=== PATIENT | female | born 1960 | race Caucasian/White ===

== ENCOUNTER 2023-01-12 08:55 | Outpatient (CLI) | payer OTHER ==
--- NOTE | 2023-01-12 12:53 | SLEEP CARE CONSULTATION ---
Information from patient questionnaire entered by Omer Pelaez. I have reviewed and concur with the information entered by Omer Pelaez. This document represents the service I personally performed and the decisions made by me, Amanda Jordan ARNP. History of Present Illness Service Date and Time: 01/12/2023 0855 Reason for Visit: New patient Accompanied by: Spouse Chief Complaint: reports: Unrefreshed sleep, Snoring, Observed pauses in breathing, Fatigue Date of Onset: 5-6YRS Usual bedtime: 930-1030PM Time it takes to fall asleep: 20MINS-2HRS, brain does not shut off Snores at night: Yes Observed to quit breathing while asleep: Yes Sleeps alone due to snoring: No Number of times waking at night: 2-3 Reasons for waking at night: reports: Gasping for air, Bathroom, Other (UNKNOWN TOO HOT TPP COLD). denies: Choking, Snoring Toss, Turn, or Twitch while sleeping: Yes Recalls having dreams: Yes (sometimes) Usually gets out of bed at: 530-830AM Feels refreshed in the morning: No Morning headache: Yes (1-2 times a week, resolves after shower) Sleepy or fatigued during the day: No Ever fallen asleep while driving: No Takes day naps: Yes (1-2 times a week, 30-45 minutes) Dreams during day naps: Yes Prior sleep studies: No Additional HPI information: I had the pleasure of seeing ADAM ALEJANDRA today regarding the possibility of her having a sleep disorder. Her current complaints are unrefreshed sleep, snoring, observed pauses in breathing and fatigue. She states she is tired all the time. She has been told that she snores "bad" by her . She states she has reoccurring dreams about being underwater and trying to get to the top to breathe. She does not wake up feeling refreshed in the morning. She does take naps. - Parasomnia Symptoms Ever been unable to move upon waking from sleep: No Walks in sleep: No Talks in sleep: Yes Ever acted out dreams in sleep: Yes (kicked spouse ) Ever felt weak in the knees when startled or emotional: Yes (not fallen) Bothered by creepy, crawly, restless sensations in legs: Yes (sometimes, random times of day, not frequent) Problems with memory or concentration: Yes (both) Subjective Initial [place] Sleepiness Scale score: 13 (01/12/23) Past Medical History Past Medical History: reports: Hypertension, Claustrophobia, Anxiety Social History The patient's occupation is a RE. Patient is and lives in [place]. Have you smoked in the past 12 months: No Alcohol use: No Caffeine use: No Family History Family history of sleep disordered breathing: Yes Family Hx Sleep Apnea: Mother: Snoring, Sleep apnea - Untreated, Father: Snoring, Sleep apnea - Untreated, Sibling: Snoring, Grandparent: Snoring Allergies and Home Medications Known drug allergies: No Drug allergies reviewed: Yes Home medication list reviewed: Yes Allergy and home medication list: Medications: Losartan/HCTZ 50-12.5 mg nightly, just started Review of Systems Weight gain over past 5 years: 20-25 Weight loss over past 5 years: 20-25 Cardiovascular: denies: high blood pressure Gastrointestinal: reports: heartburn, difficulty swallowing Neurological: denies: headaches Psychiatric: reports: anxiety, claustrophobia Ear/Nose/Throat: reports: dry mouth/throat, wisdom teeth removed. denies: tonsillectomy Endocrine: reports: sluggishness, too hot or cold. denies: thyroid disease Musculoskeletal: reports: joint pain Immunologic: reports: sneezing, allergies to food or environment Physical Exam Vital signs obtained and entered by: OMER Centeno MA Blood Pressure: 128/82 (LEFT ARM) Cuff size: regular Heart Rate: 89 O2 Saturation: 98 Height: 5 ft 4 in Weight: 179 lb 12.8 oz Body Mass Index: 30.8 BMI Classification: Obese Neck circumference: 14.5 Mouth and throat: narrow oropharynx Soft palate: long Hard palate: normal Uvula: normal Uvula visualization: 25% Mallampati Class III Tongue: enlarged in size with teeth lambert on lateral edges Tonsils: 1+ Neck: normal w/o lymphadenopathy or thyromegaly Heart: regular rate and rhythm Lungs: clear bilaterally Impression and Plan 1. Suspected Obstructive Sleep Apnea-Hypopnea Syndrome, as suggested by a history of loud and irregular snoring, observed cessation of breath while asleep, morning headache, unrefreshed sleep, cognitive impairment, and excessive daytime sleepiness. Narrow oropharynx and obesity are common predisposing factors for obstructive sleep apnea-hypopnea syndrome. I recommend proceeding to polysomnography to confirm the diagnosis and to assess severity. If the patient has significant sleep disordered breathing, a manual CPAP titration study will also be performed to find the optimal treatment pressure. I informed the patient of what the sleep studies involve and after some discussion, obtained agreement to proceed. The pathophysiology of obstructive sleep apnea-hypopnea syndrome was discussed with the patient and health risks of cardiovascular and cerebrovascular disease if not treated. Risks of drowsy driving discussed in detail and patient advised to avoid long distance driving and to pullman clerk at the first sign of drowsiness. Patient agreed to plan. * Schedule polysomnography +- manual CPAP titration study and return in 1-2 weeks after the study to discuss result and initiate therapy. * Avoid long distance driving or driving when feeling sleepy. * Avoid alcohol, sedative and muscle relaxant around bedtime. * Attempt to lose weight. * Review instructions provided by trained office staff on how to prepare for the sleep study. * Return for follow-up after sleep study completed. Counseling Topics: Weight loss health impact Visit Type: In Office Time Spent with Patient (minutes): 32 Provider Statement: I spent 100% of the Face to Face Visit with the patient with greater than 50% spent counseling the patient and coordination of care.
[2023-01-12 12:57] VITALS: BP 128/82
== END 2023-01-12 08:56 | disposition home or self-care (01) ==
LOC: SC 08:55
PROVIDERS: ATTEND Nurse Practitioner Family
DX: R06.83 Snoring (principal); G47.8 Other sleep disorders; R06.81 Apnea, not elsewhere classified; R51.9 Headache, unspecified; G47.10 Hypersomnia, unspecified; R53.83 Other fatigue; I10 Essential (primary) hypertension; E66.9 Obesity, unspecified; Z68.30 Body mass index [BMI] 30.0-30.9, adult
CPT/HCPCS: 99203; 99212

== ENCOUNTER 2023-02-01 20:30 | Outpatient (CLI) | payer OTHER | END 2023-02-01 20:31 | disposition home or self-care (01) | LOC: SC 20:30 | PROVIDERS: ATTEND Nurse Practitioner Family | DX: G47.33 Obstructive sleep apnea (adult) (pediatric) (principal); E66.9 Obesity, unspecified; Z68.30 Body mass index [BMI] 30.0-30.9, adult | CPT/HCPCS: 95810 ==

== ENCOUNTER 2023-07-05 08:55 | Outpatient (CLI) | payer OTHER ==
--- NOTE | 2023-07-05 09:21 | Sleep Patient Instructions ---
Sleep Center Visit Summary - Patient Visit Information Reason for Visit: 2-month followup for PAP therapy - Patient Instructions Additional Instructions: You were here for follow up of CPAP therapy. You will be continued on CPAP therapy with pressure at 9-10.6 cmH2O. Please let us know if the pressure change is uncomfortable and we can make further adjustments of the pressure. You should follow up with sleep care in 3 months. You may contact us sooner for any questions or concerns. - Clinic Information Contact: [facility] [address] [place] [address] [email or web address] T: [phone]
--- NOTE | 2023-07-05 09:26 | SLEEP CARE CONSULTATION ---
Information from patient questionnaire entered by Becca Pelaez. I have reviewed and concur with the information entered by Becca Pelaez. This document represents the service I personally performed and the decisions made by me, Amanda Jordan ARNP. History of Present Illness Service Date and Time: 07/05/2023 0855 Previous diagnosis: Mild, Obstructive Sleep Apnea-Hypopnea Syndrome AHI: 11.6 (01/2023) Reason for follow up: other (2 MONTH F/U PRESSURE CHANGE) Equipment type: CPAP (RESMED Airsense 11, 03/2023) Equipment obtained from: Other ([facility]; getting supplies) Mask style: Nasal pillows Mask brand: Respironics ([address]) Backup mask available: No (will keep old mask when replaced) Last cushion change: 1 month or so Prior sleep studies: No Type of Sleep Study: Polysomnography (COMPLETED 02/01/23) HPI additional information: ADAM ALEJANDRA was diagnosed to have mild, AHI 11.6, obstructive sleep apnea- hypopnea syndrome and returned today for CPAP therapy two month follow-up. Sleep Study - Results Type of Sleep Study: Polysomnography (COMPLETED 02/01/23) Prior sleep studies: No CPAP Compliance Data - Data Reviewed with Patient Average duration of nightly device use: 5 HRS 30 MIN Compliance rate %: 68 (05/02/23-06/30/23; 56/60 days used) Current pressure setting (cmH2O): 10-12 Average residual AHI: 1.1 Central apnea: 0.6 Obstructive apnea: 0.3 Average large leak: 5 L/min Subjective Missed days of use due to: reports: mask issues (taking mask off face) Patient concerns: reports: mask discomfort (improving), mask leak noise, dry mouth, nose, throat (sometimes). denies: aerophagia, air blowing in eyes, condensation in mask/hose, nasal congestion, epistaxis Observed to snore while using device: Yes (occasionally) Current pressure setting perceived as: comfortable (sometimes too high) On therapy, patient: reports: sleeping better, awakening more refreshed, being more awake and alert during the day, more rested overall. denies: drowsiness while driving Initial [place] Sleepiness Scale score: 13 (01/12/23) Current [place] Sleepiness Scale score: 3 Allergies and Home Medications Known drug allergies: No Drug allergies reviewed: Yes Home medication list reviewed: Yes (propranolol for anxiety, daily) Allergy and home medication list: Allergies No Known Drug Allergies Allergy Review of Systems Review of systems same as previous: Yes (no changes) Physical Exam Vital signs obtained and entered by: AMANDA JOHNSON Blood Pressure: 115/78 Cuff size: wrist (right) Heart Rate: 78 O2 Saturation: 99 Height: 5 ft 4 in Weight: 180 lb 6.4 oz Body Mass Index: 30.9 BMI Classification: Obese Impression and Plan 1. Obstructive Sleep Apnea-Hypopnea Syndrome, mild, with good treatment compliance and good apnea control. On CPAP therapy, the patient has better sleep quality and is more rested overall. Patient states sometimes the pressure feels like it too much and hard to breathe out against and other times is comfortable. She is finding the mask off her face when she wakes up in the morning occasionally which has reduced her compliance in the last month or so. I will reduce the pressure to 9-10.6 cmH2O to see if this will help the pressure be more comfortable and allow her to leave the mask on during the night. She is also had some oral venting causing some dry mouth occasionally. We discussed ways to reduce this including chinstrap or snoring strips on her mouth. She voiced understanding and agreement with plan. We will follow-up with her in 3 months. Patient's apnea severity and rationale for treatment to reduce apnea, improve sleep quality and reduce cardiovascular and cerebrovascular events was reviewed. I also reviewed the benefit of consistent device use of CPAP for hypertension and anxiety. 2. Obesity, unspecified. Currently patients BMI is 30.9. She is exercising daily and feels like her clothes are fitting better/looser. Obesity increases the risk of apnea, CPAP pressure requirements and overall health risks especially cardiovascular and diabetes. Thus patient is advised to continue to t ry to lose weight. * Change auto CPAP pressure to 9-10.6 cmH2O * Notify me if snoring with mask or feeling that the pressure is too much or too little * Attempt to lose weight * Call this office if any problems using CPAP * Return for follow up in 3 months, or sooner if concerns arise Counseling Topics: Spare mask, Weight loss health impact Follow up with Sleep Care in: 3 months Visit Type: In Office Time Spent with Patient (minutes): 25 Provider Statement: I spent 100% of the Face to Face Visit with the patient with greater than 50% spent counseling the patient and coordination of care.
[2023-07-05 09:34] VITALS: BP 115/78; O2SAT 99
== END 2023-07-05 08:56 | disposition home or self-care (01) ==
LOC: SC 08:55
PROVIDERS: ATTEND Nurse Practitioner Family
DX: G47.33 Obstructive sleep apnea (adult) (pediatric) (principal); E66.9 Obesity, unspecified; Z68.30 Body mass index [BMI] 30.0-30.9, adult
CPT/HCPCS: 99212; 99213

== ENCOUNTER 2023-10-04 08:39 | Outpatient (CLI) | payer OTHER ==
--- NOTE | 2023-10-04 08:57 | Sleep Patient Instructions ---
Sleep Center Visit Summary - Patient Visit Information Reason for Visit: 3-month follow-up - Patient Instructions Additional Instructions: You were here for follow up of CPAP therapy. You will be continued on CPAP therapy with pressure at 9-10.6 cmH2O. You should follow up with sleep care in 6 months. You may contact us sooner for any questions or concerns. - Clinic Information Contact: [facility] [address] [place] [id number] [email or web address] T: [phone]
[2023-10-04 09:03] VITALS: BP 124/77; O2SAT 98
--- NOTE | 2023-10-04 09:03 | SLEEP CARE CONSULTATION ---
Information from patient questionnaire entered by Becca Pelaez. I have reviewed and concur with the information entered by Becca Pelaez. This document represents the service I personally performed and the decisions made by , Amanda Jordan ARNP. History of Present Illness Service Date and Time: 10/04/2023 0900 Previous diagnosis: Mild, Obstructive Sleep Apnea-Hypopnea Syndrome AHI: 11.6 (01/2023) Reason for follow up: three month (F/U) Equipment type: CPAP (RESMED Airsense 11, s/u 03/2023) Equipment obtained from: Other ([facility]; getting supplies) Mask style: Nasal pillows Mask brand: Respironics ([employer]) Backup mask available: Yes Last cushion change: over a month or so Prior sleep studies: No Type of Sleep Study: Polysomnography (COMPLETED 02/01/23) HPI additional information: ADAM ALEJANDRA was diagnosed to have mild, AHI 11.6, obstructive sleep apnea- hypopnea syndrome and returned today for CPAP therapy three month follow-up. Sleep Study - Results Type of Sleep Study: Polysomnography (COMPLETED 02/01/23) Prior sleep studies: No CPAP Compliance Data - Data Reviewed with Patient Average duration of nightly device use: 5 HRS 44 MINS Compliance rate %: 59 (07/02/23-09/29/23; 66/90 days used; 70% in last 30 days) Current pressure setting (cmH2O): 9-10.6 (median 9.5, avg 10.3, max 10.4) Average residual AHI: 1.0 Central apnea: 0.5 Obstructive apnea: 0.3 Hypopnea: 0.1 Average large leak: 2.6 L/min Subjective Missed days of use due to: reports: mask issues, other (uncomfortable) Patient concerns: reports: mask leak noise, dry mouth, nose, throat, other (headache, not as bad lately). denies: aerophagia, mask discomfort, air blowing in eyes, condensation in mask/hose, nasal congestion, epistaxis Observed to snore while using device: No Current pressure setting perceived as: comfortable On therapy, patient: reports: sleeping better, awakening more refreshed, being more awake and alert during the day, more rested overall. denies: drowsiness while driving Initial [employer] Sleepiness Scale score: 13 (01/12/23) Current [employer] Sleepiness Scale score: 3 Allergies and Home Medications Known drug allergies: No Drug allergies reviewed: Yes Home medication list reviewed: Yes (escitalopram) Allergy and home medication list: Allergies No Known Drug Allergies Allergy (Verified 09/30/23 10:20) Review of Systems Review of systems same as previous: Yes (no changes) Physical Exam Vital signs obtained and entered by: AMANDA JOHNSON Blood Pressure: 124/77 Cuff size: regular Heart Rate: 72 O2 Saturation: 98 Height: 5 ft 4 in Weight: 183 lb Body Mass Index: 31.4 BMI Classification: Obese Impression and Plan 1. Obstructive Sleep Apnea-Hypopnea Syndrome, mild, with fair treatment compliance and good apnea control. On CPAP therapy, the patient has better sleep quality and is more rested overall. Patient continues to have some mask issues because her mask headgear is pulling on her hair and is just uncomfortable. She is taking the mask off still occasionally without realizing it during her sleep. She continues to deal with a lot of stress and home because her has newly diagnosed dementia. I will write for a mask refitting so that she may try other mask that may work better for her since she is probably eligible for a new headgear at this time. Patient has significant improvement of their sleep apnea and is satisfied with current CPAP therapy. Patient's apnea severity and ratio nale for treatment to reduce apnea, improve sleep quality and reduce cardiovascular and cerebrovascular events was reviewed. I also reviewed the benefit of consistent device use of CPAP for hypertension and anxiety. 2. Obesity, unspecified. Currently patients BMI is 31.4. Obesity increases the risk of apnea, CPAP pressure requirements and overall health risks especially cardiovascular and diabetes. Thus patient is advised to lose weight. * Continue auto CPAP pressure at 9-10.6 cmH2O * Mask refitting * Notify me if snoring with mask or feeling that the pressure is too much or too little * Attempt to lose weight * Call this office if any problems using CPAP * Return for follow up in 6 months, or sooner if concerns arise Counseling Topics: Spare mask, Weight loss health impact Prescriptions: Other (mask refitting) Follow up with Sleep Care in: 6 months Visit Type: In Office Time Spent with Patient (minutes): 29 Provider Statement: I spent 100% of the Face to Face Visit with the patient with greater than 50% spent counseling the patient and coordination of care.
== END 2023-10-04 08:40 | disposition home or self-care (01) ==
LOC: SC 08:39
PROVIDERS: ATTEND Nurse Practitioner Family
DX: G47.33 Obstructive sleep apnea (adult) (pediatric) (principal); E66.9 Obesity, unspecified; Z68.31 Body mass index [BMI] 31.0-31.9, adult
CPT/HCPCS: 99212; 99213